=== PATIENT | male | born 1995 | race Caucasian/White ===

== ENCOUNTER 2022-07-04 10:49 | Outpatient (CLI) | payer BC, SELFPAY ==
[2022-07-04 17:31] LABS: Cholesterol* 230 mg/dL (90-199); Triglycerides* 73 mg/dL (40-149)
[2022-07-04 17:32] LABS: HDL Cholesterol* 52 mg/dL (>=40); LDL Cholesterol Calculated 163 mg/dL (<100)
== END 2022-07-04 10:50 | disposition home or self-care (01) ==
PROVIDERS: PCP Family Medicine; Visit Provider Family Medicine
DX: Z13.6 Encounter for screening for cardiovascular disorders (principal)
CPT/HCPCS: 80061

== ENCOUNTER 2023-08-10 11:16 | Outpatient (CLI) | payer BC, SELFPAY | END 2023-08-10 11:17 | disposition home or self-care (01) | PROVIDERS: PCP Family Medicine; Visit Provider Family Medicine | DX: E78.5 Hyperlipidemia, unspecified (principal); Z13.228 Encounter for screening for other metabolic disorders; Z13.29 Encounter for screening for other suspected endocrine disorder | CPT/HCPCS: 80048; 80061; 84443 ==

== ENCOUNTER 2024-09-13 10:15 | Outpatient (CLI) | payer BC, SELFPAY | END 2024-09-13 10:16 | disposition home or self-care (01) | PROVIDERS: PCP Family Medicine; Visit Provider Family Medicine | DX: E78.5 Hyperlipidemia, unspecified (principal); E66.9 Obesity, unspecified; Z13.1 Encounter for screening for diabetes mellitus | CPT/HCPCS: 80048; 80061 ==